=== PATIENT | male | born 1955 | race Caucasian/White ===

== ENCOUNTER → 2018-06-06 10:43 | Outpatient (CLI) | payer OTHER, SELFPAY ==
--- NOTE | 2018-06-06 10:46 | DI.US.S_ITS ---
PROCEDURE: US SCROTUM INDICATIONS: Marked enlargement right testicle compared to left TECHNIQUE: Real-time scanning was performed of the scrotum and testicles, with image documentation. Color and pulse Doppler interrogation was performed of both testicles. COMPARISON: Outside Film, US, US TESTICULAR SCROTUM + DOPPLER, 08/08/2017, 20:03. FINDINGS: Right: Testicle is normal in size at 3.0 x 3.5 x 5.1 cm, and homogenous in echotexture. Epididymis is normal in overall size and morphology. Moderate right hydrocele again noted, no varicoceles. Overlying scrotal skin is normal in thickness. Left: Testicle is normal in size at 2.5 x 3.6 x 4.4 cm, and homogeneous in echotexture. Epididymis is normal in overall size and morphology. Small hydrocele, no varicoceles. Overlying scrotal skin is normal in thickness. Doppler: Color and pulse Doppler demonstrate normal and symmetric arterial flow in both testicles. IMPRESSION: 1. Normal testes and epididymides 2. Moderate right hydrocele, probably unchanged from prior study. 3. Left hydrocele on prior study is smaller Dictated by: Dominguez Milan M.D. on 06/06/2018 at 12:58 Approved by: Dominguez Milan M.D. on 06/06/2018 at 13:02
--- NOTE | 2018-06-06 10:51 | DI.CT.S_ITS ---
PROCEDURE: CT PEL WO CON INDICATIONS: left groin pain/swelling with history of hernia repair. Right testicular pain TECHNIQUE: Noncontrast 3 mm axial sections acquired through the bony pelvis, with coronal and sagittal reformatting. COMPARISON: None. FINDINGS: Image quality: Excellent. Bones: Post operative fusion thoracolumbar spine. Chronic irregularity of the right iliac wing, either posttraumatic or iatrogenic. Similar but less marked abnormality left iliac wing. Bilateral degenerative hip joint disease. Disc degeneration L4-5 and L5-S1. Soft tissues: A large left inguinal hernia containing mesenteric fat and nonobstructed bowel extends into the left scrotum. There is prominent hydrocele in the right scrotum. Prostate and seminal vesicles appear normal. Nondistended urinary bladder shows mild, uniform wall thickening. IMPRESSION: 1. Chronic degenerative disc, joint and osseous changes. 2. Large left inguinal hernia. 3. Right hydrocele. Dictated by: Dominguez Milan M.D. on 06/06/2018 at 15:36 Approved by: Dominguez Milan M.D. on 06/06/2018 at 15:42
== END ==
PROVIDERS: PCP Family Medicine; Visit Provider Specialist
DX: R10.32 Left lower quadrant pain (principal); N50.811 Right testicular pain; M51.36 Other intervertebral disc degeneration, lumbar region; K40.90 Unilateral inguinal hernia, without obstruction or gangrene, not specified as recurrent; M51.37 Other intervertebral disc degeneration, lumbosacral region; N43.3 Hydrocele, unspecified; M16.0 Bilateral primary osteoarthritis of hip; Z98.1 Arthrodesis status
CPT/HCPCS: 72192; 76870

== ENCOUNTER 2018-06-17 07:31 | Day surgery (SDC) | payer OTHER, SELFPAY ==
[2018-06-17 07:58] VITALS: BP 119/72; PULSE 84; RESP 18; TEMP 36.4; O2SAT 100
[2018-06-17 08:03] VITALS: BMI 39.1
[2018-06-17] MEDS: SODIUM CHLORIDE 0.9% 1,000 ML 200 ML IV (08:10)
--- NOTE | 2018-06-17 08:15 | SUR.PREOP ---
Pt ready for Endo suite at this time. Sarika at the bedside, Pt has met with Dr Rojas, PIV in place, and Pt is awaiting Endo RN.
--- NOTE | 2018-06-17 08:24 | P.HP_ITS ---
History of Present Illness Date Patient Seen: 06/17/18 Time Patient Seen: 08:21 Chief complaint: colonoscopy [id number] Narrative: 62-year-old male presenting for colorectal screening. Has been at least 10 years from his prior examination. He reports normal findings at that time. He currently denies any abdominal symptoms. No nausea, vomiting, abdominal pain, loss of appetite, unintended weight loss, change in bowel habits , diarrhea, constipation, melena, hematochezia, or bright red blood per rectum. Patient History Medical History Chronic back pain (Chronic) Chronic pain of left groin (Chronic) Elevated cholesterol (Chronic) Enlarged testicle (Chronic) HTN (hypertension) (Chronic) Surgical History History of ankle surgery (Resolved) History of back surgery (Resolved) History of gastric bypass (Resolved) History of heart artery stent (Resolved) Status post bilateral inguinal hernia repair (Resolved) Family & Social History Family History: Reviewed 06/17/18 by Aldo Rojas MD Social History: household members spouse Tobacco & Substance use: Smoking Status Never smoker Meds Home Medications Medication Instructions Recorded Confirmed Type allopurinol 100 mg PO DAILY 05/29/18 06/17/18 History amitriptyline 10 mg tablet 10 mg PO BEDTIME #30 tab 05/29/18 Rx aspirin 81 mg chewable tablet 81 mg PO DAILY 05/29/18 05/29/18 History atorvastatin PO 05/29/18 05/29/18 History cholecalciferol (vitamin D3) 1,000 1,000 unit PO DAILY 05/29/18 05/29/18 History unit capsule lisinopril 10 mg tablet 50 mg PO DAILY tab 05/29/18 06/17/18 History methocarbamol 500 mg tablet 500 mg PO QID 05/29/18 05/29/18 History metoprolol tartrate 100 mg tablet 100 mg PO ONCE tab 05/29/18 05/29/18 History vitamin A topical cream 1 applictn TOP .prn gram 05/29/18 05/29/18 History Allergies Allergy/AdvReac Type Severity Reaction Status Date / Time Penicillins Allergy Verified 05/29/18 11:14 Review of Systems Review of Systems All systems reviewed & are unremarkable except as noted in HPI and below Exam Vital Signs (past 8 hours): - 06/17/18 07:58 Temperature 97.6 F Pulse Rate 84 Respiratory Rate 18 Blood Pressure 119/72 Pulse Oximetry 100 Oxygen Delivery Method Room Air Narrative Exam Narrative: Well-nourished well-developed moderately obese male in no acute distress. Lying comfortably in bed. Alert oriented x3. His accompanies him by the bedside throughout my entire visit Sclera nonicteric Regular rate and rhythm. No murmurs, gallops, rubs Abdomen soft, nondistended, nontender, no masses Extremities no clubbing, cyanosis, or edema Objective Labs Labs: No recent laboratory or radiographic studies for review Assessment & Plan Plan: Assessment/Plan Narrative: 62-year-old male requiring colorectal screening since it has been 10 years at least from his prior examination. Colonoscopy is recommended. Technical details of the procedure were discussed at length. Risks, benefits, alternatives were explained. Risks including but not limited to sedation, aspiration, bleeding, pain, missed lesion, incomplete examination, need for further radiographic studies, colonic perforation, need for major abdominal surgery, and all attendant risks of major surgery were explained at length. All questions were answered to his satisfaction, and he voiced understanding. Consent was placed on the chart. We will proceed as above.
--- NOTE | 2018-06-17 08:24 | PM.PREOP ---
Pre-operative Note Interval Note Pre-op Check: Yes History & Physical Reviewed by Physician, Yes Exam Performed and Yes History & Physical exam performed today by Physician Changes: No H&P completed within 30 days and has changed as indicated here:: Patient seen and examined today. History physical examination placed on the chart and documented today. Proceed with colonoscopy today as planned. ASA Class (for procedural sedation): II
[2018-06-17] MEDS: MIDAZOLAM 5 MG/5 ML VIAL IV (08:36)
[2018-06-17] MEDS: fentaNYL 250 MCG/5 ML INJ IV (08:37)
--- NOTE | 2018-06-17 09:03 | PM.OP.ENDO ---
Operative Date/Time/Diagnoses Date of procedure: 06/17/18 Time of procedure: 09:03 Pre-op diagnosis: Colorectal screening Post-op diagnosis: other (Diverticulosis an extremely redundant colon necessitating incomplete colonoscopy) Procedure & Clinicians Study performed: 1. Sedation per surgeon 2. Incomplete colonoscopy to 80 cm Same procedure as scheduled: No (Plan complete colonoscopy but procedure was incomplete) Indications: 62-year-old morbidly obese male who presents for colorectal screening. Colonoscopy is recommended. Surgeon: Aldo Rojas Procedure Notes SCOAP/Timeout: Yes Procedure in detail: After obtaining informed consent the patient was brought the endoscopy suite and attached all appropriate cardiopulmonary monitors. Nasal cannula oxygen was applied. He was placed in left lateral decubitus position. A SCOAP time-out was performed per standard protocol. Intravenous sedation was achieved per the surgeon using fentanyl and Versed. Digital rectal examination revealed no obvious masses but the exam was limited because of the patient's body habitus. I could not palpate the prostate. Colonoscope was inserted into the rectum and the bowel was insufflated with carbon dioxide. Under direct visualization of the colonic lumen the scope was advanced to approximately 80 cm with much maneuvering. I utilized the scope stiffener on several occasions. Patient was repositioned to the supine position and then backed the left lateral decubitus position. Abdominal pressure was applied multiple times at each position. Bowel preparation was suboptimal throughout with opaque liquid stool left in the colon. Despite all the efforts as above I could only achieve the colon to 80 cm. Cecum was not visualized. At this point it became apparent that further efforts were futile to achieve the cecum. I therefore withdrew the scope and examined the bowel that was visible circumferentially. There were multiple places where the bowel preparation was suboptimal as well. Diverticulosis was the only noted abnormality. No obvious neoplastic changes within the above limitations. Retroflexed view the distal rectum and anus showed no obvious abnormalities but there was again significant liquid opaque stool in the rectum. Scope was withdrawn and the procedure was terminated. He will be sent for barium enema x-ray to complete the exam. I would recommend colonoscopy again in 5 years with perhaps gastroenterology expertise and Diprivan for sedation as he was somewhat difficult to sedate initially. Patient taken recovery in stable condition. Scope withdrawal time: Not applicable Sedation minutes: 30 Findings: diverticulosis and other findings (Extremely redundant colon to 80 cm prohibiting complete endoscopy to the cecum) Complications: none Recommendations: Colonscopy in 5 years (Recommend anesthesia with potential Diprivan and gastroenterology evaluation), High fiber diet and Other recommendation (Requires barium enema to complete study) Plan for aftercare: 1. Discharged home Follow up: as needed Disposition: PACU
[2018-06-17 09:05] VITALS: BP 114/78; PULSE 95; RESP 14; TEMP 36.6; O2SAT 98
[2018-06-17 09:10] VITALS: BP 116/67; PULSE 94; RESP 14; TEMP 36.6; O2SAT 98
[2018-06-17 09:31] VITALS: BP 109/72; PULSE 72; RESP 16; TEMP 36.6; O2SAT 95
== END 2018-06-17 09:35 | disposition home or self-care (01) ==
PROVIDERS: PCP Family Medicine; Visit Provider Surgery
PROC: 0DJD8ZZ Inspection of Lower Intestinal Tract, Via Natural or Artificial Opening Endoscopic (ICD-10-PCS; CPT 45378; principal; 2018-06-17 08:45)
DX: Z12.11 Encounter for screening for malignant neoplasm of colon (principal); K57.30 Diverticulosis of large intestine without perforation or abscess without bleeding; E66.01 Morbid (severe) obesity due to excess calories; Z53.09 Procedure and treatment not carried out because of other contraindication
CPT/HCPCS: 45330; 99152; 99153; J2250; J3010

== ENCOUNTER → 2018-06-28 09:42 | Outpatient (CLI) | payer BC, SELFPAY ==
--- NOTE | 2018-06-28 09:44 | DI.RAD.S_ITS ---
PROCEDURE: FL ABDOMEN 1V (BARIUM ENEMA) INDICATIONS: INCOMPLETE COLONOSCOPY TECHNIQUE: One view of the abdomen acquired. COMPARISON: None. FINDINGS: Surgical changes and devices: Old spine fixation, right upper quadrant presumed cholecystectomy clips.. Bowel: Bowel gas pattern is normal but there does appear to be stool within the right colon and portions of the transverse colon and possibly within the descending colon. Soft tissues: No suspicious abdominal calcifications. Visualized solid organ contours appear normal in size. Bones: No suspicious bony lesions. IMPRESSION: Full bowel preparation for barium enema does not appear to have been successfully achieved. This was discussed in detail with the patient, additional bowel preparation over the weekend is recommended and the study can be rescheduled for Sunday. The patient agrees with this approach. Dictated by: Mal Zimmerman M.D. on 06/28/2018 at 12:02 Approved by: Mal Zimmerman M.D. on 06/28/2018 at 12:03
== END ==
PROVIDERS: PCP Family Medicine; Visit Provider Surgery
DX: Z12.11 Encounter for screening for malignant neoplasm of colon (principal)
CPT/HCPCS: 74018

== ENCOUNTER → 2018-07-01 07:31 | Outpatient (CLI) | payer OTHER, SELFPAY ==
--- NOTE | 2018-07-01 | DI.RAD.S_ITS ---
PROCEDURE: FL BARIUM ENEMA W AIR CONTRAST INDICATIONS: INCOMPLETE COLONSCOPY COMPARISON: None. 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 No suspicious abdominal calcifications. Visualized solid organ contours are normal in size. No suspicious bony lesions. Colon: Redundant sigmoid colon is seen. Approximately 4 cm segment of high grade stenosis was noted involving proximal sigmoid colon cause significant delay of contrast transition into the descending colon. This area of stenosis was subsequently distended with contrast after 2-3 minute delay. There is adequate air-contrast opacification from the rectum to proximal transverse colon. Unable to push contrast past the proximal to mid transverse colon due to 2 significant amount of air present within ascending colon and proximal sigmoid colon. No gross ulcers, polyps, or masses are seen in the visualized portion of the colon. Haustral folds are normal in thickness throughout. No diverticula. IMPRESSION: 1. Unable to adequately opacify ascending colon and proximal to mid transverse colon due to presence of significant amount of air within the colon and delay of contrast transition into descending colon. 2. 4 cm transient high-grade stenosis involving proximal sigmoid colon causing delay of contrast transition through the area. This area was eventually fully distended with contrast show no gross filling defect or external compression. Finding may represent spasm. 3. No gross abnormalities are seen in visualized portion of redundant sigmoid colon, descending colon, and mid to distal transverse colon. Dictated by: Robetr Manzano M.D. on 07/01/2018 at 10:22 Approved by: Robert Manzano M.D. on 07/01/2018 at 10:45
== END ==
PROVIDERS: PCP Family Medicine; Visit Provider Surgery
DX: Z12.11 Encounter for screening for malignant neoplasm of colon (principal); K56.609 Unspecified intestinal obstruction, unspecified as to partial versus complete obstruction; Q43.8 Other specified congenital malformations of intestine
CPT/HCPCS: 74280

== ENCOUNTER 2018-07-18 10:39 | Day surgery (SDC) | payer OTHER, SELFPAY ==
[2018-07-18 11:34] VITALS: BP 143/85; PULSE 75; RESP 18; TEMP 36.6; O2SAT 100; BMI 38.2
[2018-07-18] MEDS: LACTATED RINGERS 1,000 ML 42 ML IV (12:01)
--- NOTE | 2018-07-18 12:27 | PM.PREOP ---
Pre-operative Note Interval Note Pre-op Check: Yes History & Physical Reviewed by Physician and Yes Exam Performed Changes: No
[2018-07-18] MEDS: CLINDAMYCIN 900 MG/50 ML PIGGYBACK 50 MG IV (12:53)
--- NOTE | 2018-07-18 13:08 | SUR.OPER ---
Supine on padded OR bed, head on pillow, arms secured on padded arm boards at <90 degrees abduction, legs uncrossed, safety belt at thigh, tape over blanket over lower legs.
[2018-07-18] MEDS: BUPIVACAINE 0.5% (PF) VIAL 30 ML INJ (13:28)
--- NOTE | 2018-07-18 14:59 | PM.OP.1 ---
Operative Date/Time/Diagnoses Date of procedure: 07/18/18 Time of procedure: 14:47 Pre-op diagnosis: Left inguinal hernia recurrent Post-op diagnosis: same (Indirect hernia containing sigmoid colon. Direct component as well.) Procedure & Clinicians Procedure: Repair with plug and patch technique. Patch placed over and ileopubic tract/Bassini repair Same procedure as scheduled: Yes Indications: Symptomatic left inguinal hernia Surgeon: Rambo Goldman Click Yes if Unassisted: Yes Anesthesia Type: General Operative Notes Findings: See postop diagnosis. Very large hernia and cord structures. Very difficult operation to perform. Closure Type: primary Specimen(s): none sent Implants & Drains: Mesh Estimated Blood Loss (mL): 25 Blood products transfused: none Procedure in detail: Patient was placed supine on the operating room table and underwent general LMA anesthesia. He was prepped and draped in the usual fashion. Transverse incision was made in left lower quadrant overlying the internal ring. Incision was carried down level the external oblique. The external oblique was opened parallel with its fibers through the external ring. Cord structures were elevated. The cord was very thickened. I opened the cremaster approximately and discovered a fair amount of fat. I encountered an indirect sac which contained colon. I divided adhesions of the colon to the sac and reduced the colon. I then the sac proximally from the cord structures as well as other structures. I then closed the sac using a pursestring of 0 silk. The stump was allowed to retract. A large plug was placed in the defect and tacked into place with the interrupted 0 Tycron sutures. Cremaster was closed with interrupted 3 0 Polysorb. The floor was very attenuated essentially obliterated. I sutured medial floor which included transversalis to the remnant of the ileopubic tract and the inguinal ligament. This was done up to and forming a new internal ring. The sutures were then tied and I placed a patch across this repair tacking at the pubic tubercle, the ilioinguinal ligament, the posterior lamella the anterior rectus sheath and superior lateral cord. The opening for the cord had to be enlarged due to the large size of the residual structures. This was accomplished the external oblique was closed with a running 3 0 Polysorb. The subcu was closed interrupted 4 0 Polysorb skin was closed with running for Polysorb subcuticular stitch and Steri-Strips. Dressing was applied. Testicle was pulled down. Patient was awakened and taken recovery room good condition. There are no apparent complications. Complications: none Condition: stable Disposition: PACU
[2018-07-18 15:02] VITALS: BP 118/70; PULSE 75; RESP 14; TEMP 36.2; O2SAT 97
[2018-07-18 15:05] VITALS: BP 115/69; PULSE 72; RESP 10; O2SAT 96
[2018-07-18 15:10] VITALS: BP 111/66; PULSE 72; RESP 11; O2SAT 94
[2018-07-18 15:15] VITALS: BP 94/60; PULSE 75; RESP 15; O2SAT 92
[2018-07-18 15:30] VITALS: BP 119/72; PULSE 67; RESP 16; TEMP 36.4; O2SAT 94
== END 2018-07-18 15:39 | disposition home or self-care (01) ==
PROVIDERS: PCP Family Medicine; Visit Provider Specialist
PROC: (CPT 49521; principal; 2018-07-18 12:00)
DX: K40.91 Unilateral inguinal hernia, without obstruction or gangrene, recurrent (principal); K66.0 Peritoneal adhesions (postprocedural) (postinfection); I10 Essential (primary) hypertension
CPT/HCPCS: 49521; 93005; 93010; C1781; J1100; J2405; J2704; J3010

== ENCOUNTER → 2018-07-31 09:44 | Outpatient (CLI) | payer OTHER, SELFPAY ==
[2018-07-31 09:49] LABS: Bacteria Urine None Seen; RBC Urine None Seen (0-5/HPF); WBC Urine None Seen (0-5/HPF)
[2018-07-31 10:20] LABS: Appearance Urine UA CLEAR; Bilirubin Urine UA NEGATIVE (NEGATIVE); Color Urine UA YELLOW; Glucose Urine UA NEGATIVE (Normal); Ketones Urine UA NEGATIVE (NEGATIVE); Leukocyte Esterase Urine UA NEGATIVE (NEGATIVE); Nitrite Urine UA Negative (Negative); Occult Blood Urine UA NEGATIVE (Negative); Protein Urine UA NEGATIVE (Negative); Urobilinogen Urine UA 0.2 E.U./dL (0.2)
[2018-07-31 10:47] LABS: Culture Indicated Urine Cult Not Indicated; Squamous Epithelial Cell Urine 5-10 /HPF
== END ==
PROVIDERS: PCP Family Medicine; Visit Provider Specialist
DX: R30.0 Dysuria (principal)
CPT/HCPCS: 81001

== ENCOUNTER → 2021-08-01 09:59 | Outpatient (CLI) | payer MEDICARE, OTHER, SELFPAY ==
--- NOTE | 2021-08-01 | DI.US.S_ITS ---
PROCEDURE: US SCROTUM INDICATIONS: RIGHT TESTICULAR PAIN TECHNIQUE: Real-time scanning was performed of the scrotum and testicles, with image documentation. Color and pulse Doppler interrogation was performed of both testicles. COMPARISON: [facility], , US SCROTUM, 06/06/2018, 11:09. FINDINGS: Right: Testicle is normal in size at 5.2 x 2.7 x 2.3 cm, and homogenous in echotexture. Epididymis is not seen. Moderate hydrocele. No varicocele. Overlying scrotal skin is thickened. Left: Testicle is normal in size at 4.7 x 3.0 x 2.3 cm, and homogeneous in echotexture. Epididymis is not seen.. Moderate hydrocele. No varicocele. Overlying scrotal skin is thickened. Doppler: Color and pulse Doppler demonstrate normal and symmetric arterial flow in both testicles. IMPRESSION: 1. Bilateral scrotal thickening, which could indicate edema, infection, or inflammation. 2. Bilateral hydroceles. 3. Absence of the epididymi bilaterally, possibly postsurgical. Dictated by: Sparkle Stiles M.D. on 08/01/2021 at 13:50 Approved by: Sparkle Stiles M.D. on 08/01/2021 at 14:02
== END ==
PROVIDERS: PCP Internal Medicine; Referring Provider Family Medicine; Visit Provider Family Medicine
DX: N50.811 Right testicular pain (principal); N43.3 Hydrocele, unspecified
CPT/HCPCS: 76870

== ENCOUNTER → 2022-07-21 06:33 | Outpatient (CLI) | payer MEDICARE, OTHER, SELFPAY ==
[2022-07-21 07:37] LABS: COVID19 -Nasal RAPID Negative (Negative)
== END ==
PROVIDERS: PCP Internal Medicine; Referring Provider Internal Medicine; Visit Provider Internal Medicine
DX: Z20.822 Contact with and (suspected) exposure to COVID-19 (principal)
CPT/HCPCS: 87635; C9803

== ENCOUNTER → 2022-07-21 06:35 | Outpatient (CLI) | payer MEDICARE, OTHER, SELFPAY ==
--- NOTE | 2022-07-26 08:15 | PM.PFT.1 ---
Pulmonary Function Test Referral & Results Date Patient Seen: 07/21/22 Requesting provider: Rodney Hernández Results: The spirometry demonstrates an FVC of 3.64 L which is 67% of predicted. The FEV1 was measured at 2.58 L which is 64% of predicted. The FEV1/FVC ratio was 71 which is 95% of predicted. Following the administration of bronchodilator there was a 24% improvement in FEV1 and a 107% improvement in FEF 25-75%. Lung volumes show an SVC of 4.20 L which is 78% of predicted. The diffusing capacity was measured at 33.61 which is 86% of predicted. The maximum voluntary ventilation was minimally if at all reduced Interpretation: This study demonstrates mild to moderate obstructive lung disease based on reduction FEV1 although FEV1/FVC ratio is preserved there is evidence of significant benefit following bronchodilator administration as above There is a mild or minimal reduction in lung volumes suggesting the presence of mild restrictive lung disease which may explain some of the abnormality in the FEV1 above Clinical correlation suggested
== END ==
PROVIDERS: PCP Internal Medicine; Referring Provider Internal Medicine Cardiovascular Disease; Visit Provider Internal Medicine Cardiovascular Disease
DX: J98.8 Other specified respiratory disorders (principal); Z79.899 Other long term (current) drug therapy; Z20.822 Contact with and (suspected) exposure to COVID-19
CPT/HCPCS: 87635; 94060; 94726; 94729; C9803

== ENCOUNTER → 2022-09-07 06:37 | Outpatient (CLI) | payer MEDICARE, OTHER, SELFPAY ==
--- NOTE | 2022-09-07 06:39 | DI.ECHO.S_ITS ---
[facility] +---------+ : : [address] : : : : [id number] : : : : Phone: [phone]+ Echocardiogram Report + + :Name: JOSE EDUARDO RAMIREZ Study Date: 09/07/2022 Height: 75 in : :[facility] ReadingLocation: Weight: 320 lb: : Gender: Male BSA: 2.7 m2 : :: 1955 Age: 67 yrs : :Reason For Study: DILATED CARDIOMYOPATHY : :Ordering Physician: JENY, : :LUIS SCHULTZ Performed By: Laura Thompson : :Referring: LUIS FERMIN : + + Interpretation Summary The left ventricle is normal in size. Left ventricular systolic function is mildly reduced. The ejection fraction is estimated to be 40-45%. Compared to the prior exam, the left ventricular function is improved. Diastolic function could not be accurately assessed due to atrial fibrillation. The right ventricle is borderline dilated. The right ventricular systolic function is normal. Procedure: A two-dimensional transthoracic echocardiogram with color flow and Doppler was performed. Comparison is made with the echocardiogram of 04/26/2021. The study quality was technically difficult. A contrast injection of Definity was performed to improve assessment of LV function. The patient was in atrial fibrillation with heart rates between 95-100 bpm during the exam. Left Ventricle: The left ventricle is normal in size. Left ventricular wall thickness is mildly increased. Left ventricular systolic function is mildly reduced. The ejection fraction is estimated to be 40-45%. Compared to the prior exam, the left ventricular function is improved. Diastolic function could not be accurately assessed due to atrial fibrillation. Right Ventricle: The right ventricle is borderline dilated. The right ventricular systolic function is normal. Atria: The left atrium is mildly dilated. Right atrial size is normal. There is no Doppler evidence for an interatrial shunt. Mitral Valve: The mitral valve is grossly normal. There is no mitral regurgitation noted. Aortic Valve: The aortic valve opens well. There is no aortic valve stenosis. No aortic regurgitation is present. Tricuspid Valve: The tricuspid valve is normal in structure and function. There is a trace or physiologic amount of tricuspid regurgitation. Pulmonic Valve: The pulmonic valve is not well visualized. There is trace pulmonic regurgitation. Great Vessels: The aortic root is normal size. The ascending aorta is moderately enlarged. The IVC is of normal diameter and collapses greater than 50% with a sniff. This suggests a low right atrial pressure of 3 mm Hg. Pericardium/ Pleura There is no pericardial effusion. There is no pleural effusion. MMode/2D Measurements & Calculations LVIDd: 5.4 cm LVOT diam: 2.6 cm LVIDs: 3.5 cm Ao root diam: 3.7 cm FS: 35.9 % asc Aorta Diam: 4.3 cm IVSd: 0.95 cm LVPWd: 1.1 cm LV brantley. diameter/BSA (cm/m^2): 2.0 LV sys. diameter/BSA (cm/m^2): 1.3 LA A2 area: 27.9 cm2 RA long axis: 5.9 cm LA A4 area: 27.2 cm2 RA area: 21.5 cm2 LA length (vol): 7.0 cm RA vol: 67.1 ml LA vol: 91.7 ml RA : 25.0 ml/m2 LA vol index: 34.2 ml/m2 IVC diam: 1.8 cm RVD1 (basal): 4.1 cm RVD2 (mid): 3.3 cm TAPSE: 2.1 cm Doppler Measurements & Calculations Ao V2 max: 108.4 cm/sec LVOT Max Ervin: 74.7 cm/sec Ao V2 mean: 76.2 cm/sec LV V1 max P.2 mmHg Ao max P.7 mmHg LV V1 VTI: 14.9 cm Ao mean P.6 mmHg EUGENE(I,D): 4.3 cm2 Ao V2 VTI: 18.1 cm EUGENE(V,D): 3.6 cm2 sev ratio: 0.82 EUGENE indexed to BSA (cm^2/m^2): 1.6 MV E max ervin: 79.5 cm/sec PA pr(Accel): 41.3 mmHg MV A max ervin: 1.4 cm/sec MV E/A: 56.5 Med Peak E' Ervin: 9.4 cm/sec E/E' med: 8.5 Lat Peak E' Ervin: 10.1 cm/sec E/E' lat: 7.9 E/e' average: 8.2 MV dec time: 0.17 sec SV(LVOT): 77.9 ml Reading Physician:06:06 PM
--- NOTE | 2022-09-07 06:40 | DI.CT.S_ITS ---
PROCEDURE: CT ANGIO CHEST INDICATIONS: DILATED CM/CHRONIC SYSTOLIC HF/PAROX AFIB/AFLUTTER TECHNIQUE: After the administration of intravenous contrast, 2 mm thick sections acquired from the pulmonary apices to the posterior costophrenic angles. 3-dimensional maximum intensity projection (MIP) coronal and sagittal reformats were then acquired through the thorax. For radiation dose reduction, the following was used: automated exposure control, adjustment of mA and/or kV according to patient size. COMPARISON: None. FINDINGS: Image quality: Excellent. Pulmonary arteries: Pulmonary arteries are normal in size, and demonstrate no intraluminal filling defects to suggest central pulmonary embolism. Pulmonary veins: Right superior pulmonary vein: 2.3 cm diameter. 1.8 cm from ostium to 1st order branch. Right inferior pulmonary vein: 1.6 cm diameter. 2.2 cm from ostium to 1st order branch. Left superior pulmonary vein: 2.8 cm diameter. 3.5 cm from ostium to 1st order branch. Left inferior pulmonary vein: 2.0 cm diameter. 2.2 cm from ostium to 1st order branch. Supernumerary pulmonary veins: None Lungs and pleura: No acute air space opacities. 8 millimeter benign calcification in the lingula. No pleural effusions or pneumothorax. Central and peripheral airways are patent and normal in caliber. Mediastinum: Heart size is at the upper limits of normal. No pericardial effusion. No mediastinal adenopathy by size criteria. Thoracic aorta and central pulmonary arteries are normal in size. Esophagus is normal in caliber. Small hiatal hernia. The thoracic aorta has scattered atherosclerotic calcifications. No aneurysm or dissection. Bones and chest wall: Postoperative changes of multilevel pedicular screw and cynthia fixation of the thoracic spine. No vertebral body compression fractures. No axillary or supraclavicular adenopathy by size criteria. Thyroid gland is normal. Abdomen: Limited visualization of the upper abdomen shows no acute abnormality. Status post cholecystectomy. IMPRESSION: 1. No acute abnormality of the thorax. 2. Coronary artery stents/calcifications. 3. No pulmonary embolism or aortic dissection. No pericardial effusion. 4. Pulmonary vein anatomy as above. Dictated by: Angel Otrega M.D. on 09/07/2022 at 10:24 Approved by: Angel Ortega M.D. on 09/07/2022 at 10:29
[2022-09-07 07:34] LABS: Blood Urea Nitrogen 13 mg/dL (9-20); Calcium 8.7 mg/dL (8.4-10.2); Carbon Dioxide 30 mmol/L (22-32); Chloride 100 mmol/L (98-107); Estimated Glomerular Filt Rate > 60 mL/min (>60); Glucose 115 mg/dL (80-110); HEMOLYSIS 16 (0-50); Potassium 4.3 mmol/L (3.4-5.1); Sodium 138 mmol/L (137-145)
== END ==
PROVIDERS: PCP Internal Medicine; Referring Provider Nurse Practitioner Acute Care; Visit Provider Nurse Practitioner Acute Care
DX: I48.0 Paroxysmal atrial fibrillation (principal); I48.3 Typical atrial flutter; I42.0 Dilated cardiomyopathy; I50.22 Chronic systolic (congestive) heart failure; I25.10 Atherosclerotic heart disease of native coronary artery without angina pectoris; I77.89 Other specified disorders of arteries and arterioles; Z95.5 Presence of coronary angioplasty implant and graft
CPT/HCPCS: 36415; 71275; 80048; C8929; Q9957; Q9967

== ENCOUNTER 2024-06-10 08:32 | Emergency (ER) | payer MEDICARE, OTHER, SELFPAY ==
[2024-06-10] VITALS (9 sets, daily range): BP systolic 127–160; BP diastolic 60–84; PULSE 61–75; RESP 10–18; TEMP 36.6; O2SAT 95–98; BMI 39.9
--- NOTE | 2024-06-10 08:56 | ED_ITS ---
HPI - General Adult General Chief complaint: Trauma Stated complaint: fell wed. blurred vision Time Seen by Provider: 06/10/24 08:45 Source: patient Mode of arrival: Ambulatory History of Present Illness HPI narrative: 68-year-old male history of cardiac arrhythmias, prior ablation, hypertension, dyslipidemia, chronic neck and back pain apixaban daily who presents with complaint last Sunday. Patient states he falls intermittently. He has a leg that tends to give out occasionally after having a fall from an airplane in the 1970s has had chronic issues with his back and weakness in his leg. Was at the store was carrying a package caught him unexpectedly he was not using his cane like he normally does and he fell onto his right side striking the right side of his head. States he has had pain in his neck since then as well as some decreased vision on the left. He states when he looks at the words on the board in the room they sort of all converge together. He states if he uses ice that does seem to help. Had quite a bit of swelling and bruising he states his eye and cheek were swollen up that is improved since then. Went to primary care yesterday who sent him to optometry for evaluation was told to go the ED as we ll. Optometry did not evaluate him told him to go with the emergency department. Patient is anticoagulated on apixaban does take his medication daily. States he has had some mild headaches. Denies any changing vision but states has not normalized since his fall. Has persistent neck pain. Patient states he has had some chronic issues with his neck as well. No new numbness tingling or weakness of extremities. No new back pain, no chest pain or shortness of breath. No nausea or vomiting. No GI or urinary symptoms. No incontinence. He has been able to ambulate without issue. Related Data Home Medications Medication Instructions Recorded Confirmed allopurinol 100 mg PO DAILY 05/29/18 08/08/21 atorvastatin 40 mg PO DAILY 05/29/18 08/08/21 cholecalciferol (vitamin D3) 25 1,000 unit PO DAILY 05/29/18 08/08/21 mcg (1,000 unit) capsule metoprolol tartrate 100 mg tablet 100 mg PO ONCE 05/29/18 08/08/21 apixaban 5 mg tablet 5 mg PO BID 08/08/21 08/08/21 calcium carbonate (Calcium 500) 500 mg PO DAILY 08/08/21 08/08/21 gabapentin 400 mg capsule 400 mg PO TID 08/08/21 08/08/21 telmisartan 40 mg tablet 40 mg PO DAILY 08/08/21 08/08/21 Allergies Allergy/AdvReac Type Severity Reaction Status Date / Time Penicillins Allergy Severe Difficulty Verified 08/08/21 14:26 Breathing Review of Systems Review of Systems ROS Unobtainable: All systems reviewed & are unremarkable except as noted in HPI and below Patient History Medical History Bilateral hydrocele Right testicular pain Back pain Heart murmur Heart attack (~2015) Recurrent left inguinal hernia Hydrocele, bilateral Elevated cholesterol Chronic back pain Enlarged testicle Chronic pain of left groin HTN (hypertension) Surgical History History of inguinal hernia repair, bilateral History of colonoscopy History of mandibular surgery (~1974) History of ankle surgery (~1971) History of back surgery (~2008) History of gastric bypass (~2004) History of heart artery stent Status post bilateral inguinal hernia repair Family History Mother Hypertension Diabetes mellitus Father Heart disease Stroke Social History household members: spouse occupational status: unemployed Smoking Status: Never smoker alcohol intake: current Smoking Status: Never smoker Substance Use Type: does not use Exam Narrative Exam Narrative: GEN: Patient appears in mild distress. HEAD: No evidence of trauma, no raccoon/Ordonez sign. NECK: Nontender, painless range of motion, trachea midline Positive Nexus criteria, positive for mid line tenderness, no distracting injury, altered mental status, neuro deficit, recent EtOH. EYES: PERRLA, EOMI Visual acuity: right 20/200, left 20/50 without correction. IOP: Right 17 mm Hg, Left 17 mm Hg General: no globe trauma Eyelids: normal inspection, eyelids everted for exam on [right/left/both]. Conjunctiva/Sclera: normal inspection Corneas: normal inspection, examined with fluroscein on right. EOM: intact, no palsy/entrapment Pupils: PERRL, normal accomadation, pupil normal Anterior Chambers: normal inspection, no hypema Posterior: normal fundoscopic on left, possibly cells on the right, no clear hyphema appreciated. ENT: External inspection normal except for some greenish discoloration of the right cheek, trachea is midline, TM's are normal no hemotypanum, Nares are clear, no septal hematoma, no dental or oral injury, airway is normal and with normal occlusion, No bony tenderness RESP: Chest is nontender and has symmetric movement, no ecchymosis, breath sounds are normal no crackles, wheezes or rales CVS: Heart sounds are normal, no murmur noted, No JVD. ABG/GI: Nontender, soft, normal bowel sounds, no distention, no organomegaly, pelvic rock is negative NEURO: Oriented AOx3, neuro is grossly intact, sensation and motor is normal all 4 extremities moving, cranial nerves II through XII are intact, GCS is 15 PSYCH: Normal mood and affect SKIN: Intact, warm and dry, no crepitus and without decubitus BACK: No CVA tenderness, no vertebral tenderness, no step-off's, no crepitus EXT: Atraumatic, hips are nontender, no pedal edema, normal color and temperature, normal range of motion of extremities with normal tendon exam, 2+ pulses in all four extremities Initial Vital Signs Initial Vital Signs: Vital Signs Blood Pressure 148/84 H 06/10/24 08:38 Course Orders Ordered: ED Orders 06/10/24 09:30 CT cervical spine wo con Stat CT facial bones wo con Stat CT head/brain wo con Stat Discontinued Medications Fluorescein Sodium (Fluorescein 1 Mg Strip) 1 mg EYE-BOTH NOW ONE Stop: 06/10/24 09:02 Last Admin: 06/10/24 09:12 Dose: 1 mg Documented By: Proparacaine HCl (Proparacaine 0.5% Ophth Lona) 1 drops EYE-BOTH NOW ONE Stop: 06/10/24 09:02 Last Admin: 06/10/24 09:12 Dose: 2 drop Documented By: Vital Signs Vital signs: Vital Signs - 8 hr 06/10/24 08:38 06/10/24 08:39 06/10/24 08:42 Temperature 97.9 F Pulse Rate 72 72 Respiratory Rate 18 Blood Pressure 148/84 H 148/84 H Pulse Oximetry 97 98 Oxygen Delivery Method Room Air 06/10/24 09:06 06/10/24 09:08 06/10/24 09:08 Temperature Pulse Rate 75 66 Respiratory Rate 10 L Blood Pressure 158/73 H Pulse Oximetry 95 Oxygen Delivery Method 06/10/24 09:30 06/10/24 09:30 06/10/24 10:00 Temperature Pulse Rate 64 62 Respiratory Rate 10 L 12 Blood Pressure 127/60 Pulse Oximetry 95 96 Oxygen Delivery Method 06/10/24 10:00 06/10/24 10:30 06/10/24 10:30 Temperature Pulse Rate 62 Respiratory Rate 13 Blood Pressure 136/65 136/71 Pulse Oximetry 95 Oxygen Delivery Method 06/10/24 11:00 06/10/24 11:00 Temperature Pulse Rate 61 Respiratory Rate 15 Blood Pressure 160/75 H Pulse Oximetry 98 Oxygen Delivery Method Medical Decision Making MDM Narrative Medical decision making narrative: 68-year-old male anticoagulated on apixaban who had a fall not quite a week ago has had decreased vision of the right since as well as swelling and did strike his right eye/head at that time. Visual acuity is 20/30 bilaterally, 20/50 in the left in 20/200 on the right can read the E on the exam but has difficulty. Head CT shows no acute change CT facial bones no fracture, no evidence of intra-ocular pathology on the right, CT cervical spine no acute fracture or traumatic subluxation. Patient's imaging is overall reassuring he has noted a change in his vision states been getting little bit better, thought I saw some cells but no clear hyphema on evaluation, pressures are appropriate, no proptosis, patient is not have any pain. Discussed with patient would like for him to see Ophthalmology today for further eye examination. Patient is agreeable. Spoke with Dr. Duncan, ophthalmology she happy to see the patient. Reviewed findings from today. Discharge Plan Departure Patient Disposition: Home Clinical Impression: Decreased vision of right eye, Traumatic ecchymosis of face, Fall Activity Restrictions/Additional Instructions: Follow-up with Ophthalmology for a more detailed eye exam, please go directly to the office for evaluation. Your imaging today was negative on your head CT facial bones and cervical spine. Please return for worsening vision, severe headaches, alterations in mental status, persistent vomiting, new numbness tingling or weakness other new or concerning changes. Prescriptions: No Action metoprolol tartrate 100 mg tablet 100 mg PO ONCE cholecalciferol (vitamin D3) 1,000 unit capsule 1,000 unit PO DAILY allopurinol 100 mg PO DAILY atorvastatin 40 mg PO DAILY apixaban 5 mg tablet 5 mg PO BID calcium carbonate [Calcium 500] 500 mg calcium (1,250 mg) tablet,chewable 500 mg PO DAILY gabapentin 400 mg capsule 400 mg PO TID telmisartan 40 mg tablet 40 mg PO DAILY Referrals: Lillian Duncan MD [Physician] - Reuben Ochoa MD [Primary Care Provider] - Stand Alone Forms: Patient Portal/API
[2024-06-10] MEDS: FLUORESCEIN 1 MG STRIP EYE-BOTH (09:12)
[2024-06-10] MEDS: PROPARACAINE 0.5% OPHTH SOL 1 DROPS EYE-BOTH (09:12)
--- NOTE | 2024-06-10 09:30 | DI.CT.S_ITS ---
PROCEDURE: CT HEAD/BRAIN WO CON INDICATIONS: fall Wed, hit right side face/cheek/neck pain, change vision R eye TECHNIQUE: Noncontrast 4.5 mm thick angled axial sections acquired from the foramen magnum to the vertex, with coronal and sagittal reformats. For radiation dose reduction, the following was used: automated exposure control, adjustment of mA and/or kV according to patient size. COMPARISON: None. FINDINGS: Image quality: Diagnostic. CSF spaces: Basal cisterns are patent. No extra-axial fluid collections. Ventricles are normal in size and shape. Brain: No midline shift. No intracranial masses or hemorrhage. Gambino-white matter interface is normal. Skull and face: Calvarium and visualized facial bones are intact, without suspicious lesions. Sinuses: Visualized sinuses and mastoids are clear. IMPRESSION: No acute intracranial pathology. Dictated by: René Ospina M.D. on 06/10/2024 at 9:43 Approved by: René Ospina M.D. on 06/10/2024 at 9:44
--- NOTE | 2024-06-10 09:30 | DI.CT.S_ITS ---
PROCEDURE: CT FACIAL BONES WO CON INDICATIONS: fall Wed, hit right face/cheek/neck pain, change vision R eye TECHNIQUE: Noncontrast 2.5 mm thick axial images acquired from the mandible through the frontal sinuses, with coronal and sagittal reformatting. For radiation dose reduction, the following was used: automated exposure control, adjustment of mA and/or kV according to patient size. COMPARISON: None. FINDINGS: Image quality: Excellent. Bones and teeth: Orbital cortez are intact. Sinus cortez show no fracture or deformity. Nasal bones and septum are intact. Visualized portions of the mandible demonstrate no fractures or subluxation. Zygomatic arches are intact. Pterygoid plates are intact. Visualized portions of the skull base and auditory canals are intact. Sinuses: Paranasal sinuses are aerated, without fluid levels, mucosal thickening, or mucoceles. Mastoid air cells are aerated. Soft tissues: No edema, masses, or fluid collections. No enlarged lymph nodes. No soft tissue lacerations or debris. Vascular: Visualized vascular structures appear normal in the absence of contrast. Bony vascular foramina and canals are intact. IMPRESSION: No displaced fracture or air-fluid level. No evidence of intra-ocular pathology on the right. Dictated by: René Ospina M.D. on 06/10/2024 at 9:40 Approved by: René Ospina M.D. on 06/10/2024 at 9:41
--- NOTE | 2024-06-10 09:30 | DI.CT.S_ITS ---
PROCEDURE: CT CERVICAL SPINE WO CON INDICATIONS: fall Wed, hit right face/cheek/neck pain, change vision R eye TECHNIQUE: Noncontrast 3 mm thick sections acquired from the skull base to the T4 level. Sagittal and coronal reformats were then constructed. For radiation dose reduction, the following was used: automated exposure control, adjustment of mA and/or kV according to patient size. COMPARISON: None. FINDINGS: Image quality: Excellent. Bones: No fractures or dislocations. Visualized superior ribs are intact. Mild to moderate, multilevel degenerative disc disease and diffuse facet arthrosis. Soft tissues: Prevertebral soft tissues are normal in thickness. No paravertebral hematomas. No apical pneumothoraces. IMPRESSION: No displaced fracture or traumatic subluxation. Dictated by: René Ospina M.D. on 06/10/2024 at 9:41 Approved by: René Ospina M.D. on 06/10/2024 at 9:43
== END 2024-06-10 11:37 | disposition home or self-care (01) ==
PROVIDERS: Emergency Provider Emergency Medicine; PCP Internal Medicine
DX: S00.83XA Contusion of other part of head, initial encounter (principal); H54.61 Unqualified visual loss, right eye, normal vision left eye; W18.30XA Fall on same level, unspecified, initial encounter; Z79.01 Long term (current) use of anticoagulants; Z79.899 Other long term (current) drug therapy
CPT/HCPCS: 70450; 70486; 72125; 99284